=== PATIENT | female | born 1990 | race Caucasian/White ===

== ENCOUNTER 2024-10-04 23:09 | Emergency (ER) | payer MEDICAID, SELFPAY ==
--- NOTE | 2024-10-04 | ECG_ITS ---
Test Reason : CHEST PAIN Blood Pressure : */* mmHG Vent. Rate : 84 BPM Atrial Rate : 84 BPM P-R Int : 160 ms QRS Dur : 72 ms QT Int : 362 ms P-R-T Axes : 35 43 28 degrees QTcB Int : 427 ms Normal sinus rhythm with sinus arrhythmia Normal ECG No previous ECGs available Referred By: Generic ED Physician Electronically Signed By: LYDIA BETANCOURT MD
--- NOTE | ~2024-10-04 | XR_ITS ---
CLINICAL HISTORY: chest tightness 2 view chest x-ray Comparison: None Findings: No consolidation or effusion. Heart size is normal. No acute fracture. IMPRESSION: 1. No acute findings. This document has been electronically signed by: Vamshi Church MD on 10/05/2024 00:06:49
[2024-10-04 23:26] VITALS: BP 123/87; PULSE 84; RESP 16; TEMP 36.3; O2SAT 98; BMI 35.0
[2024-10-04 23:58] LABS: MANUAL DIFF FLAG NO
[2024-10-04 23:59] LABS: Basophils Absolute Auto 0.1 X10*3/uL (0.0-0.2); Basophils Percent Auto 0.9 % (0-2); Eosinophils Absolute Auto 0.3 X10*3/uL (0.0-0.4); Eosinophils Percent Auto 2.9 % (0-4); Hematocrit 40.7 % (37.0-47.0); Hemoglobin 13.9 g/dl (12.0-16.0); Imm Gran Abs Auto 0.03 X10*3/uL (0.00-0.03); Imm Gran Pct Auto 0.3 % (0.0-0.4); Lymphocytes Absolute Auto 2.6 X10*3/uL (1.2-4.9); Lymphocytes Percent Auto 29.4 % (20-40); Mean Corpuscular HGB Conc 34.2 g/dl (31.0-35.0); Mean Corpuscular Volume 82.1 fL (80.0-98.0); Mean Platelet Volume 10.1 fL (9.4-12.3); Monocytes Absolute Auto 0.6 X10*3/uL (0.1-1.2); Monocytes Percent Auto 6.7 % (2-11); Neutrophils Absolute Auto 5.3 x10*3/uL (2.0-8.3); Neutrophils Percent Auto 59.8 % (45-73); Platelet Count 324 X10*3/uL (160-400); Red Blood Count 4.96 X10*6/uL (4.20-5.50); Red Cell Distribution Width 13.8 % (11.0-16.0); White Blood Count 8.9 X10*3/uL (4.8-10.8)
[2024-10-05 00:31] LABS: Alanine Aminotransferase 15 U/L (0-31); Albumin Level 4.2 g/dL (3.5-5.0); Anion Gap 12 (12-20); Aspartate Amino Transferase 17 U/L (5-31); Bilirubin Total 0.2 mg/dL (0.0-1.0); Blood Urea Nitrogen 10 mg/dL (9-16); Calcium 9.3 mg/dL (8.4-10.2); Carbon Dioxide 21 mmol/L (22-29); Chloride 111 mmol/L (96-108); Creatinine Clr Calc Pharmacy 119.4; Estimated Glomerular Filt Rate > 60; Glucose Random 89 mg/dL (60-115); Potassium 3.7 mmol/L (3.3-5.1); Sodium 140 mmol/L (135-145); Total Protein 7.6 g/dL (6.5-8.0)
[2024-10-05 00:34] LABS: Troponin-I High Sensitivity < 2.7 ng/L (<3.5-17.0)
[2024-10-05 00:51] LABS: Alkaline Phosphatase 81 U/L (39-117)
[2024-10-05 04:00] VITALS: BP 107/76; PULSE 71; RESP 16; TEMP 36.7; O2SAT 99
[2024-10-05 04:04] VITALS: BP 112/67; PULSE 90; PULSE 95; RESP 20; TEMP 36.9; O2SAT 98
--- OUTSIDE RECORDS SUMMARY | 2024-10-05 04:28 | XMS_ITS | Clinical Summary ---
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 Name Role Phone Unavailable Primary Care Provider Unavailabl e Social History Tobacco Use Types Packs/Day Years Used Date Smoking Tobacco: Never Assessed Comments Unknown Sex and Gender Information Value Date Recorded Sex Assigned at Not on file Legal Sex Female 8:57 PM EST Gender Identity Not on file Sexual Orientation Not on file Plan of Treatment Health Maintenance Due Date Last Done Comments DTaP,Tdap,and Td Vaccines (1 - Tdap) 2011 Hepatitis B Vaccines (1 of 3 - 19+ 3-dose series) 2011 Cervical Cancer Screening: P ap Smear 2013 Depression Screening 09/16/2023 HIV Screening 09/16/2023 Hepatitis C Screening 09/16/2023 Social Influencers of Health Screening 09/16/2023 COVID-19 Vaccine ( - 2023-2 5 season) 2024 Influenza Vaccine (#1) 2024 HIB Vaccines Aged Out No longer eligi ble based on patient's age to complete this topic HPV Vaccines Aged Out No longer eligi ble based on patient's age to complete this topic Hepatitis A Vaccines Aged Out No long er eligible based on patient's age to complete this topic IPV Vaccines Aged Out No longer eligi ble based on patient's age to complete this topic MMR Vaccines Aged Out No longer eligi ble based on patient's age to complete this topic Meningococcal ACWY Vaccine Aged Out N o longer eligible based on patient's age to complete this topic Pneumococcal Vaccine: Pediat rics (0 to 5 Years) and At-Risk Patients (6 to 64 Years) Aged Out No longer eligible b ased on patient's age to complete this topic RSV Immunization Patients Un lukasz 20 months Aged Out No longer eligible b ased on patient's age to complete this topic Varicella Vaccines Aged Out No longer eligible based on patient's age to complete this topic
--- OUTSIDE RECORDS SUMMARY | 2024-10-05 04:28 | XMS_ITS | Data Portability ---
Author Organization [place] - [facility] Address [address] [place] [address] Assessment Encounter Date Assessment Date Assessment LastModified by Organization Details LastModified Time 12/08/2021 12/08/2021 31 year old woman returns for medical weight loss [email or web address] Not available 12/08/2021 11:30:14 02/05/2022 02/05/2022 31 year old woman returns for medical weight loss [email or web address] Not available 02/05/2022 15:42:48 11/03/2023 11/03/2023 33 year old woman returns for medical weight loss [email or web address] Not available 11/03/2023 12:12:58 Plan of Treatment Reminders Order Date Submit Date Provider Last Modified By Organization Details Last Modified Time Details Appointments None recorded. Lab TSH, serum or plasma 2021 [facility], [address] [place], [address], 2 14:43:15 T4, total, serum 2021 022 [facility], [address] [place], [address], 2 14:43:14 lipid panel w/ direct LDL, serum 2021 [facility], [address] [place], [address], 2 14:43:13 HbA1c (hemoglobin A1c), blood 2021 022 [facility], [address] [place], [address], 2 14:48:54 TSH, serum or plasma 2021 022 [facility], [address] [place], [address], 2 16:18:17 T4, total, serum 2021 022 [facility], [address] [place], [address], 2 16:18:17 T4, total, serum 2021 022 [facility], [address] [place], [address], 2 16:18:16 HbA1c (hemoglobin A1c), blood 2021 022 [facility], [address] [place], [address], 2 16:18:16 lipid panel w/ direct LDL, serum 2021 [facility], [address] [place], [address], 2 16:18:16 Referral None recorded. Procedures None recorded. Surgeries None recorded. Imaging None recorded. Medication Orders naltrexone 50 mg tablet 2021 022 [email or web address] 7 [id number], [address], [place], [id number], 2 15:49:11 bupropion HCl SR 100 mg tablet,12 hr sustained-r elease 2021 [facility][id number], [address], [place], [id number], 2 16:18:16 naltrexone 50 mg tablet 2021 022 [email or web address] 7 [facility] #[id number], [address], [place], [id number], 15:49:11 Patient TargetsNo targets recorded. Patient Instructions Encounter Date Encounter Id Patient Instructions Last Modified By Organization Details Last Modified Time 10/09/2021 [id number] nutritional counseling, dietitian visit* [email or web address] Not available 02/19/2022 09:55:33 Reason for Referral None Reported. Results Created Date Observation Date Name Description Value Unit Range Abnormal Flag Note LastModifiedBy Organization Detail LastModifiedTime 12/09/19 22 12/08/2021 LIPID PANEL triglyceride s 152 mg/dL 0-199 normal Not Available [facility] [address] [place], [address], 12/08/2021 14:43:13 12/09/19 22 12/08/2021 LIPID PANEL cholesterol 213 mg/dL 0-200 high Not Available [facility] [address] [place], [address], 12/08/2021 14:43:13 12/09/19 22 12/08/2021 LIPID PANEL LDL cholesterol calculated 138.60 0 mg/dL Not Available [facility] [address] [place], [address], 12/08/2021 14:43:13 12/09/19 22 12/08/2021 LIPID PANEL HDL cholesterol 44 mg/dL 40-60 normal The Natio nal Mily stero l Educa tion Progr am has publi shed the follo wing cut-o ffs for patie nt class ifica tion for the preve ntion and manag ement of paul cunningham heart disea se in adult s Adult Treat ment Panel III Class ifica tion CLASS IFICA TION LDL MILY STERO L CONVE NTION AL UNITS Optim al Less than 100 mg/dl Near or above optim al 100-1 29 mg/dl Borde rline High 130-1 59 mg/dl High 160-1 89 mg/dl Very High > or =190 mg/dl Not Available [facility] - [address], [address], 12/08/2021 14:43:13 12/09/19 22 12/08/2021 FREE T4 FREE THYRO XINE free T4 free thyroxine 1.04 NG/dL 0.93-1 .70 normal Not Available [facility] - [address], [address], 12/08/2021 14:43:14 12/09/19 22 12/08/2021 THYRO ID STIMU LATIN G HORMO NE thyroid stimulating hormone 1.660 uIU/m L 0.27-4 .20 normal Not Available [facility] - [address], [address], 12/08/2021 14:43:15 12/09/19 22 12/08/2021 HEMOG LOBIN A1C hemoglobin A1C 5.4 % 0.3-5. 7 normal NOTE: REFER ENCE RANGE HERRING E OF 2018 The refer ence range for HgbA1 c is indic ated in the table below Sugge sted Diagn osis HgbA1 c % Joan l <5.7 Pre-d iabet ic 5.7-6 .4 Diabe tic >= 6.5 Not Available [facility] - [address], [address], 12/08/2021 14:48:54 02/16/20 22 02/15/2022 COVID - ROUTI NE covid source NASAL Not Available [facility] [address] [place], [address], 02/16/2022 13:26:33 02/16/20 22 02/16/2022 COVID - ROUTI NE cov2 (sars) RNA NEGATI VE negati ve The Maria Luisa SARS- CoV-2 test for use on the maria luisa 6800/ 8800 syste ms is a molec ular in vitro diagn ostic test for the quali tativ e detec tion of SARS- CoV-2 RNA by real- time RT-PC R in upper respi rator y speci mens in indiv idual or valadez d nasop haryn geal, oroph aryng eal or nasal swab sampl es. Posit lazaro resul ts are indic ative of the prese nce of SARS- CoV-2 RNA, which is gener ally detec table in respi rator y speci mens durin g the acute phase of infec tion. Posit lazaro resul ts do not rule out bacte rial infec tion or co-in fecti on with other virus es. Clini dunia corre latio n with patie nt histo ry and other diagn ostic infor matio n is neces teddy to deter mine patie nt infec tion statu s. Negat lazaro resul ts do not precl ude SARS- CoV-2 infec tion and shoul d not be used as the sole basis for treat ment or other patie nt manag ement decis ions. Negat lazaro resul ts must be combi guevara with clini dunia obser vatio ns, patie nt histo ry, recen t expos ures and epide miolo gical infor matio n. Presu mptiv e posit lazaro resul ts indic ate that the SARS- CoV-2 viral RNA may be prese nt; addit ional sampl e colle ction may be consi dered if clini tano indic ated. Inval id resul ts indic ate the contr ol did not meet accep tance crite leslie; a new sampl e shoul d be obtai guevara if clini tano indic ated. This test has been autho rized by the FDA under an Emerg ency Use Autho rizat ion for use by labor atori es certi fied under Clini dunia Labor atory Impro vemen t Amend ments of 1987 (CLIA ), that meet requi remen ts to perfo rm high or moder ate compl exity tests . The [place]isa SARS- CoV-2 Lette r of Autho rizat ion, along with the autho rized fact sheet for healt hcare provi ders, the autho rized fact sheet for patie nts and autho rized label ing are avail able at the site below : https ://ww w.fda .gov/ medic al-de vices /elijah navir us-di sease -2019 -covi d-19- emerg ency- use-a uthor renetta ons-m edica l-dev ices/ in-vi tro-d iagno stics -euas -mole cular -diag nosti c-savana ts-sa rs-co v-2#i ndivi dual- molec ular Not Available [facility] [address], [address], 02/16/2022 13:26:33 09/24/19 22 10/26/2016 [place], unlashley gonsalves No observ ation record ed. [email or web address] Not Available 09/24 22:40:04 Result Notes None recorded. Problems Name Problem SNOMED Code Status Onset Date Resolution Date Notes Provider Name and Address Organization Details Recorded Time Obesity 973239799 Active 2017 [ 8] (E66.9) Obesity, BMI 30-34.9, adult Not Available [facility] 07:49:50 Projectil e vomiting 4705308 Active 2017 [ 8] (R11.12) Projectile vomiting Not Available [facility] 07:49:50 Dermatoph ytosis of the body Active 2014 [ 5] (B35.5) Dermatophy tosis of the body Not Available [facility] 07:49:50 Well adult 712070631 Active 2014 [ 5] (Z00.8) Health maintenanc e exam Not Available [facility] 07:49:50 Anxiety 48977752 Active 2016 [ 7] (F41.9) Anxiety Not Available [facility] 07:49:50 Depressiv e disorder 41813571 Active 2016 [ 7] (F32.9) Depression Not Available [facility] 07:49:50 Thyroid stimulati ng hormone level above reference range 234568164 Active 2014 [ 5] (R94.6) Elevated TSH Not Available [facility] 07:49:51 Muscle strain 39162219 Active 2020 [ 1] (M70.90) Muscle strain Not Available [facility] 07:49:51 Notes:None Problem Notes None recorded. Procedures Surgical History Date Name Laterality Status Provider Name and Address Organization Details Recorded Time 4 telehealth cancelled Jackie QUINN [address] [place], [address], [facility] 12/13/2023 09:15:59 3 telehealth completed Pamela Dickey MA [address] [place], [address], [facility] 06/14/2023 13:46:02 Imaging Results Imaging Date Name Status LastModified by Organiz ation Details LastModified Time 10/26/2016 [place], unlisted completed [email or web address] Information not available 09/24/2021 22:40:04 Procedure Notes None recorded. Medical Equipment None Reported. Medications Name Sig Start Date Stop Date Status Note LastModified by Organization Details LastModified Time cyclobenza rhett 10 mg tablet TAKE 1/2 TABLET BY MOUTH EVERY NIGHT AT BEDTIME 07/14 completed Not Available Not Available Not Available citalopram 10 mg tablet Take 1 tablet by mouth daily [facility] 10/03 completed None Not Available Not Available Not Available naltrexone 50 mg tablet TAKE 1/2 TABLET BY MOUTH IN THE AFTERNOO N AND BEFORE DINNER 02/05 completed Not Available Not Available Not Available sumatripta n 50 mg tablet Take 1 tablet once for migraine , if no improvem ent, can repeat 1 hour later, limit 2 / day active Not Available Not Available No t Available acetaminop hen 500 mg tablet TAKE 1 TABLET BY MOUTH EVERY 4 TO 6 HOURS NEEDED FOR PAIN 07/14 completed Not Available Not Available Not Available bupropion HCl SR 100 mg tablet,12 hr sustained- release TAKE 1 TABLET BY MOUTH TWICE DAILY BEFORE MEALS active Not Available Not Available No t Available Depo-Prove ra 150 mg/mL intramuscu lar suspension 1 injectio n every 12 weeks 07/14 completed 921613 Not Available Not Available Not Available omeprazole 20 mg capsule,de layed release TAKE 1 CAPSULE BY MOUTH EVERY DAY 2021 active Not Available Not Available Not Avai lable ibuprofen 600 mg tablet TAKE 1 TABLET BY MOUTH EVERY 6 HOURS NEEDED FOR PAIN 07/14 completed Not Available Not Available Not Available ondansetro n 4 mg disintegra ting tablet DISSOLVE 1 TABLET ON THE TONGUE EVERY 8 HOURS NEEDED FOR NAUSEA active Not Available Not Available No t Available Ventolin HFA 90 mcg/actuat ion aerosol inhaler active Not Available Not Available Not Available Elayne 30 mg tablet TAKE 1 TABLET BY MOUTH SOON POSSIBLE WITHIN 5 DAYS FROM UNPROTEC COLLETTE INTERCOU RSE FOR EMERGENC Y CONTRACE PTION active Not Available Not Available No t Available riboflavin (vitamin B2) 400 mg tablet TAKE ONE TABLET BY MOUTH DAILY active Not Available Not Available No t Available Vitals Date Recorded Body height Body mass index (BMI) Body weight Heart rate Body temperature Respiratory rate Oxygen saturation Oxygen saturation in Arterial blood by Pulse oximetry Systolic blood pressure Diastolic blood pressure Provider Name and Address Organization Details Last Updated DateTime 2 170.18 cm 34.5 kg/m2 73035.3 2 g 98 /min 99 [degF] 18 /min 99 % 99 % 123 mm[Hg] 81 mm[Hg] CYNDY DICKEY [place] - [facility] 2 14:56:42 Date Recorded Body height Body temperature Respiratory rate Oxygen saturation Oxygen saturation in Arterial blood by Pulse oximetry Heart rate Body mass index (BMI) Body weight Systolic blood pressure Diastolic blood pressure Provider Name and Address Organization Details Last Updated DateTime 2 170.18 cm 97.5 [degF] 18 /min 96 % 96 % 95 /min 34 kg/m2 24326.2 1 g 108 mm[Hg] 71 mm[Hg] CYNDY DICKEY [facility] 2 11:15:28 Date Recorded Body height Provider Name an d Address Organization Details Last Updated DateTime 02/05/2022 170.18 cm CYNDY DICKEY [facility] 02/05/2022 14:04:14 Date Recorded Body mass index (BMI) Body weight Heart rate Body temperature Respiratory rate Oxygen saturation Oxygen saturation in Arterial blood by Pulse oximetry Systolic blood pressure Diastolic blood pressure Provider Name and Address Organization Details Last Updated DateTime 2 33.8 kg/m2 67362.6 5 g 90 /min 98.6 [degF] 18 /min 98 % 98 % 90 mm[Hg] 57 mm[Hg] Malina Childers MA [address] [place] [address], [address] [place] [address] 2 14:13:45 Social History Question Answer Notes LastModified by Organizat ion Details LastModified Time Tobacco Smoking Status Never Smoker Not Available [facility] 06/12/2021 03:37:35 What Is Your Level Of Alcohol Consumption? None Former Weekends <1 Drink/wk Information not available 06/12/2021 Which Illicit Or Recreational Drugs Have You Used? 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 07/06/2018 [email or web address] Information not available 03/20/2022 What Is Your Relationship Status? Single Information not available 06/12/2021 Do You Use Your Seat Belt Or Car Seat Routinely? Yes Always Information not available 06/12/2021 Are You Sexually Active? No Previously Contraception : Condoms Information not available 06/12/2021 Do You Use Any Illicit Or Recreational Drugs? No Former Information not available 06/12/2021 Sex: Female Functional Status Question Answer Note LastModified by Organization D etails LastModified Time What is your exercise level? Never Information not available 06/12/2021 Mental Status None recorded. Family History Relationship Description Onset Age of this Age Resolved Age Notes LastModified by Organization Details LastModified Time Sister Family history of acute medical disorder Hypert hyroid ism esadasivam.16 4 Not available 04/17/2021 06:37:34 Mother Family history of diabetes mellitus type 2 esadasivam.16 4 Not available 04/17/2021 06:37:34 Maternal Grandmother Family history of diabetes mellitus type 2 esadasivam.16 4 Not available 04/17/2021 06:37:34 Father Family history of premature coronary heart disease esadasivam.16 4 Not available 04/17/2021 06:37:34 Brother Family history of asthma esadasivam.16 4 Not available 04/17/2021 06:37:34 Notes:hep c(Full Brother) Medical History No medical history recorded. Gynecological HistoryNo gynecological history recorded. Obstetrics History GPAL:G 0 P 0 0 0 0 Immunizations Vaccine Type Date Status Note Provider Nam e and Address Organization Details Recorded Time Tdap 6 completed Imtiaz Patterson MD [address] [place] [address], [address], [facility] 07/14/2021 19:57:30 Influenza, split virus, trivalent, preservative 5 completed Not Available [facility] 04/18/2021 13:07:47 Influenza, split virus, trivalent, preservative 1 completed Imtiaz Patterson MD [address] [place] [address], [address], [facility] 07/14/2021 19:57:30 Past Encounters Encounter ID Performer Location Encounter Start Date Encounter Closed Date Diagnosis/Indication Diagnosis SNOMED-CT Code Diagnosis ICD10 Code Diagnosis Note [id number] Imtiaz Patterson MD [address] [address] 07/14/2021 19:36:27 07/14/2021 20:07:52 Acid reflux 045029830 K21.9 Daily, independen t of food, trial PPI Migraine 79929767 G43.90 9 Worsened lately, especially with light, trial sumatripta n Obesity 283792957 E66.9 Refer bariatric medicine [id number] Barrington An MD [address] [address] 10/09/2021 13:59:59 10/09/2021 16:17:50 Obesity 509481034 E66.9 Medical Weight Loss PlanCalori e target 1200Emphas ized importance of 3 consistent meals with emphasis on protein, higher fiber, lower carbohydra te foods and lower quantities of healthy fatRecomme nded 2-3 higher fiber higher protein snacks between mealsCouns eled consistenc y in physical activity regimen with goal of daily activity of 60 minutes per dayMedicat ion yoly belowLabs indicated: as belowWeigh t loss goal: 10% reduction for health improvemen t of one to 2 pounds per week of gradual sustainabl e weight loss [id number] Barrington An MD [address] [address] 12/08/2021 11:00:50 12/08/2021 11:32:34 Obesity 936222222 E66.9 Medical Weight Loss PlanCalori e target 1200Emphas ized importance of 3 consistent meals with emphasis on protein, higher fiber, lower carbohydra te foods and lower quantities of healthy fatRecomme nded 2-3 higher fiber higher protein snacks between mealsCouns eled consistenc y in physical activity regimen with goal of daily activity of 60 minutes per dayMedicat ion plan Increase BupropionA dd naltrexone Labs indicated: Thyroid fcn lipids q9pIbxymm loss goal: 10% reduction for health improvemen t of one to 2 pounds per week of gradual sustainabl e weight loss [id number] Barrington An MD [address] [address] 02/05/2022 14:03:14 02/05/2022 16:08:51 Obesity 068713017 E66.9 Medical Weight Loss PlanCalori e target 1200Emphas ized importance of 3 consistent meals with emphasis on protein, higher fiber, lower carbohydra te foods and lower quantities of healthy fatRecomme nded 2-3 higher fiber higher protein snacks between mealsCouns eled consistenc y in physical activity regimen with goal of daily activity of 60 minutes per dayMedicat ion plan Increase BupropionA dd naltrexone Labs indicated: Thyroid fcn lipids u8ySolpyr loss goal: 10% reduction for health improvemen t of one to 2 pounds per week of gradual sustainabl e weight loss Depressive disorder 6794 8703 F32.9 Reviewed mental health resource list and she will look for a therapistd icussed mindfulnes s meditation and use to relieve stress and control eating behaviors as well [id number] Thomas Subramanian MD [address] [address] 06/14/2023 16:42:03 06/14/2023 20:12:46 Obesity 312102094 E66.9 States she would like to get on Wegovy..- Advised that [facility] will not cover Wegovy for obesity without a prediabete s or diabetes dxStates she's willing to change insurance plans- Advised she review which plans cover Wegovy (e.g., [facility], [facility])- Advised she make certain that it's covered and that the co-pay is not excessive before switching- Advised she consider finding a new PCP near [place], as [facility] is about 2 hrs awayF/U w/PCP PRN. [id number] Jie Torres MD [address] [address] 11/03/2023 07:33:14 11/03/2023 13:33:57 Obesity 436712872 E66.9 Medical Weight Loss PlanCalori e target 1200 Emphasized importance of 3 consistent meals with emphasis on protein, higher fiber, lower carbohydra te foods and lower quantities of healthy fat Recommende d 2-3 higher fiber higher protein snacks between mealsCouns eled consistenc y in physical activity regimen with goal of daily activity of 60 minutes per dayMedicat ions tried naltrexone bupropionA dd naltrexone Labs indicated: yes, come to the labsWeight loss goal: 10% reduction for health improvemen t of one to 2 pounds per week of gradual sustainabl e weight loss will refer to obesity clinicnutr itionist referral set upwill order labs to see if pt is a diabetic Health Concerns Section Related Observation LastModified by Organization Detai ls LastModified Time None Recorded Concern Status LastModified by Organization Details LastModified Time None Recorded Advance Directives Directive None Recorded Payers Encounter Date Sequence Insurance Name Policy Number Policy Driscoll Covered Member ID Driscoll Member ID Guarantor Name 10/09/[address] [facility] - [employer] (MEDICAID REPLACEMENT) Edmarys Aranda [id number] Edmarys Aranda 12/08/[address] [facility] - [employer]ILY [employer] (MEDICAID REPLACEMENT) Edmarys Aranda [id number] Edmarys Aranda 02/05/2022 1 [facility] - MY CARE FAMILY ACO (MEDICAID REPLACEMENT) Edmarys Aranda [id number] Edmarys Aranda 06/14/2023 1 [place]ICAID[place] Edmarys G Aranda [id number] Edmarys Aranda 11/03/2023 1 [place] Edmarys G Aranda [id number] Edmarys Aranda Notes Date Note Type Note Provider Name and Address Organization Details Recorded Time 2 text/html Initial Medical Weight Loss Visit Weight gained: 223-225 highest weightweight 220BMI 34.5 Weight loss attemptsDiets - liquid detox 2 months agoMedications - noneBariatric Surgeries - none Weight Related Medical Related HistoryElevated TSHGERDMedications - omeprazole , Vitamin B12 Psychiatric HistoryDiagnoses - Anxiety / Depressionstopped going to schoolSince age 21Medications - None Family HistoryObesity - NoneDiabetes - Mom , grandma Social History - go out to eat - sometimesEmployment - NoLives with her adult brothers and family 24 hour dietary recallBreakfast - coffee , breakfast sandwichLunch - NoneDinner - fried plantains , salami Cravings - NoneHunger yesBinging - None Physical Activity - None Barrington An MD [address] [place] [address], [phone], [facility] 10/09/2021 18:30:20 2 text/html Last Nutrition Visit: noneLast Bariatric Visit: 10/09/2020 current weight 217 lbs BMI 342/18/ weight 220 lbs BMI 34.5 nutrition visit Activity- started at the gym -Medications bupropion and has not started [id number] Dietary Recall:Breakfast: sandwich and coffeeLunch: fish , sweet potatoe fries and broccoliDinner: fish , sweet potatoe fries and broccoli Snacks: yogurtBeverages: water w-217.2bmi-34.0gfat- 40.4muscle- 27.3rm- 1800 kcal Barrington An MD [address] [place], [address], [facility] 12/08/2021 11:46:18 2 text/html Last Nutrition Visit: noLast Bariatric Visit: 12/08/2021 PMH- depression 24-hour Dietary Recall:Breakfast: scrambled egg and pitta bread coffee with creamLunch: macedonian foodDinner: none Snacks: activa yogurtBeverages: water pt is taking meds as prescribeddenies any side effects.exercises 5 times at week for 30 minutes. weight 216 lbs weight 217 lbs BMI 34 December 08BMI-33.9G fat: 43.4%G muscle:25.8%G [id number] Barrington An MD [address] [place] [address], [address], [facility] 02/05/2022 16:08:57 3 text/html Telehealth visit today {{via audio technology* via audio-visual technology}}. Patient informed they can see a clinician in-person as needed. Clinician's location: {{[facility]* off-site office}}. Patient's location: {{Home* Work}}.# Obesity- States she would like to consider Wegovy for weigh loss- States she lives in [place], [place]- States she has [facility] standard, but she can try to switch her insurance Thomas Subramanian MD [address] [place], [address], [facility] 06/14/2023 20:12:05 4 text/html Telehealth visit today {{via audio technology* via audio-visual technology}}. Patient informed they can see a clinician in-person as needed. Clinician's location: {{[facility]* off-site office}}. Patient's location: {{Home* Work}}.Obesity- States she would like to consider Wegovy for weigh loss- States she lives in [place], [place]- States she has [facility] standard, but she can try to switch her insurance Jie Torres MD [address] [place] [address], [address], [facility] 11/03/2023 12:18:28 OBGyn Episode No OBEpisode recorded.
--- OUTSIDE RECORDS SUMMARY | 2024-10-05 04:28 | XMS_ITS | Clinical Summary ---
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 Role Phone Unavailable Primary Care Provider Unavailabl e Social History Tobacco Use Types Packs/Day Years Used Date Smoking Tobacco: Never Assessed Comments Unknown Sex and Gender Information Value Date Recorded Sex Assigned at Not on file Legal Sex Female 10:34 AM EDT Gender Identity Not on file Sexual Orientation Not on file Plan of Treatment Health Maintenance Due Date Last Done Comments Depression Screening 1992 Alcohol/Substance Use Screening 2004 Tobacco Screening 2004 Family Planning (PISQ) 2007 DTaP/Tdap/Td Vaccines (1 - Tdap) 2011 Hepatitis B Vaccines (1 of 3 - 19+ 3-dose series) 2011 Pap Smear 2013 Cervical Cancer Screening 2022 HPV/Cotest 2022 COVID-19 Vaccine ( - 2023-2 5 season) 2024 Influenza Vaccine (#1) 2024 Zoster Vaccines (1 of 2) 2042 RSV Patients and Pa tients Aged 60 years or older (1 - 1-dose 75+ series) 2067 HIB Vaccines Aged Out No longer eligi [...] patient's age to complete this topic Meningococcal Vaccine Aged Out No mike larisa eligible based on patient's age to complete this topic Pneumococcal Vaccine: Pediat rics (0 to 5 Years) and At-Risk Patients (6 to 49) Years) Aged Out No longer eligible b ased on patient's age to complete this topic RSV under 20 months Aged Out No longe r eligible based on patient's age to complete this topic Rotavirus Vaccines Aged Out No longer eligible based on patient's age to complete this topic
--- NOTE | 2024-10-05 04:33 | ED_ITS ---
HPI - Chest Pain General Chief Complaint: Chest Pain Stated Complaint: Chest Pain Time Seen by Provider: 10/05/24 04:33 History of Present Illness ED Provider: Kit MOURA narrative: The patient is a 34-year-old woman who presents with a one-day history of chest pain and chest tightness. She feels the pain more on the left side of her chest and into her left neck. She says that it feels like a muscle strain. It is worse with movements. She has had no fever, sweats, chills. No cough or sputum. No pain or swelling in her legs. No nausea or vomiting. Related Data Previous Rx's ?Medication ?Instructions ?Recorded ibuprofen 400 mg tablet 400 mg PO Q6H PRN pain #14 tabs 10/05/24 Allergies Allergy/AdvReac Type Severity Reaction Status Date / Time No Known Allergies Allergy Verified 10/04/24 23:28 Review of Systems 2 Review of Systems: Yes all other systems are reviewed and are negative [facility] Social History Social History Smoked in Last 30 Days: No Use of substances other than those prescribed or required for medical reasons: No Advance Directives: No Advance Directives Information Provided: Yes Do you have a plan to hurt others: No Plan Patient : No Physical Exam 2 Vital Signs: Vital Signs: Last Vital Signs Temp 98.5 F 10/05/24 05:16 Pulse 95 10/05/24 05:16 Resp 20 10/05/24 05:16 BP 112/67 10/05/24 05:16 Pulse Ox 98 10/05/24 05:16 O2 Del Method Room Air 10/05/24 05:16 BMI result Body Mass Index 35.0 Const: Other: The patient is awake, alert, pleasant, cooperative. She does not appear in overt distress. Orientation/consciousness: patient oriented x3 HEENT: Other: Face is symmetrical. Mucous membranes moist. Eyes: General: appearance normal, both eyes and all related structures Neck: Neck: Yes full ROM, Yes no lymphadenopathy and Yes no JVD Chest: Other: The patient is very tender with palpation of the anterior chest wall at the sternal borders bilaterally and mostly on the left side. Palpation seems to reproduce her pain. Resp: Effort & Inspection: normal respiratory effort Auscultation: clear to auscultation bilaterally Cardio: Rate: regular rate Rhythm: regular rhythm Heart sounds: S1 normal heart sound present and S2 normal heart sound present GI: Other: Abdomen is soft and nontender Skin: General skin exam: no rashes or lesions noted Neuro: General: patient oriented x3, tone normal, moves all extremities, no focal motor deficits and CN's II-XI intact bilaterally Extrem: Other: no calf swelling or tenderness. No peripheral edema. No asymmetry. Medications Administered Discontinued Medications Generic Name Dose Route Start Last Admin Trade Name Njq PRN Reason Stop Dose Admin Acetaminophen 975 mg 10/05/24 05:09 10/05/24 05:13 Acetaminophen 325 Mg Tablet PO 10/05/24 05:10 975 mg ONCE ONE Administration Ibuprofen 400 mg 10/05/24 05:09 10/05/24 05:13 Ibuprofen 400 Mg Tablet PO 10/05/24 05:10 400 mg ONCE ONE Administration Medical Decision Making Medical Decision Making [facility] Narrative: The patient is a 34-year-old female who presents for evaluation of chest pain. She is PERC negative. EKG shows normal sinus rhythm at 84 beats per minute. It is a normal EKG. The patient does not appear ill. She has a great deal of tenderness to the anterior chest wall and palpation seems to reproduce her pain. Labs are unremarkable including an undetectable troponin. I think this is a fairly straightforward case of chest wall pain. She will be treated with NSAIDs. Lab Data 10/04/24 23:53 10/04/24 23:53 Labs: Lab Results 10/04/24 Range/Units 23:53 WBC 8.9 (4.8-10.8) X10*3/uL RBC 4.96 (4.20-5.50) X10*6/uL Hgb 13.9 (12.0-16.0) g/dl Hct 40.7 (37.0-47.0) % MCV 82.1 (80.0-98.0) fL MCH 28.0 (27.0-33.0) pg MCHC 34.2 (31.0-35.0) g/dl RDW 13.8 (11.0-16.0) % Plt Count 324 (160-400) X10*3/uL MPV 10.1 (9.4-12.3) fL Immature Gran % (Auto) 0.3 (0.0-0.4) % Neut % (Auto) 59.8 (45-73) % Lymph % (Auto) 29.4 (20-40) % [place] % (Auto) 6.7 (2-11) % Eos % (Auto) 2.9 (0-4) % Baso % (Auto) 0.9 (0-2) % Lymph # (Auto) 2.6 (1.2-4.9) X10*3/uL [place] # (Auto) 0.6 (0.1-1.2) X10*3/uL Eos # (Auto) 0.3 (0.0-0.4) X10*3/uL Baso # (Auto) 0.1 (0.0-0.2) X10*3/uL Abs Immat Gran (auto) 0.03 (0.00-0.03) X10*3/uL Absolute Neuts (auto) 5.3 (2.0-8.3) x10*3/uL Absolute Nucleated RBC 0.000 (0.0-0.012) X10*3/uL Nucleated RBC % (auto) 0.0 (0.0-0.2) /100WBC Sodium 140 (135-145) mmol/L Potassium 3.7 (3.3-5.1) mmol/L Chloride 111 H (96-108) mmol/L Carbon Dioxide 21 L (22-29) mmol/L Anion Gap 12 (12-20) BUN 10 (9-16) mg/dL Creatinine 0.80 (0.5-1.4) mg/dL Estim Creat Clear Calc 119.4 Estimated GFR > 60 Random Glucose 89 (60-115) mg/dL Calcium 9.3 (8.4-10.2) mg/dL Total Bilirubin 0.2 (0.0-1.0) mg/dL AST 17 (5-31) U/L ALT 15 (0-31) U/L Alkaline Phosphatase 81 (39-117) U/L Troponin I High Sens < 2.7 (<3.5-17.0) ng/L Total Protein 7.6 (6.5-8.0) g/dL Albumin 4.2 (3.5-5.0) g/dL Beta HCG, Quant < 2 mIU/mL Discharge Plan Discharge Clinical Impression: Acute chest wall pain Patient Disposition: Home, Self-Care Instructions: Chest Wall Pain (ED) Additional Instructions: The pain you were experiencing seems to be coming from your chest wall. The chest wall is made up of the bones of the ribs and the sternum, the cartilage that connects the ribs to the sternum, and the muscles between the ribs. These structures can be a source of pain. I believe that is what is happening in your case. I have sent a prescription for ibuprofen which you may use every 6 hours as needed for this pain. You may also use acetaminophen (Tylenol). Please avoid activities that exacerbate your pain. I would expect this pain to get better in a few days. Please work on getting a local primary care doctor. Return to the emergency room if significantly worse. Prescriptions: New ibuprofen 400 mg tablet 400 mg PO Q6H PRN (Reason: pain) Qty: 14 0RF Interventions: ED Discharge Assessment Last Done: 10/05/24 05:16 Discharge Date/Time: 10/05/24 05:19 Print Language: Czech
[2024-10-05 05:04] LABS: HCG Quantitative < 2 mIU/mL
[2024-10-05] MEDS: Ibuprofen 400 MG TABLET PO (05:13)
[2024-10-05] MEDS: Acetaminophen 325 MG TABLET 975 MG PO (05:13)
[2024-10-05 05:16] VITALS: BP 112/67; PULSE 95; RESP 20; TEMP 36.9; O2SAT 98
== END 2024-10-05 05:19 | disposition home or self-care (01) ==
PROVIDERS: Emergency Provider Emergency Medicine
DX: R07.89 Other chest pain (principal); M54.2 Cervicalgia; Z79.899 Other long term (current) drug therapy
CPT/HCPCS: 36415; 71046; 80053; 84484; 84702; 85025; 93005; 99283; 99285

== ENCOUNTER → 2024-10-04 23:18 | Outpatient (BNV) | payer MEDICAID, SELFPAY | PROVIDERS: Emergency Provider Emergency Medicine; Visit Provider Internal Medicine Cardiovascular Disease | DX: I49.9 Cardiac arrhythmia, unspecified (principal) | CPT/HCPCS: 93010 ==

== ENCOUNTER → 2024-10-04 23:30 | Outpatient (BNV) | payer MEDICAID, SELFPAY | PROVIDERS: Visit Provider Radiology Diagnostic Radiology | DX: R07.89 Other chest pain (principal) | CPT/HCPCS: 71046 ==